=== PATIENT | female | born 2000 | race Caucasian/White ===

== ENCOUNTER 2021-07-30 04:49 | Emergency (ER) | payer OTHER ==
[2021-07-30 05:01] VITALS: BP 112/72; PULSE 93; RESP 20; TEMP 98.1
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
== END 2021-07-30 06:20 | disposition home or self-care (01) ==
LOC: EC 04:49
DX: S80.01XA Contusion of right knee, initial encounter (principal); F90.9 Attention-deficit hyperactivity disorder, unspecified type; F17.200 Nicotine dependence, unspecified, uncomplicated; F12.90 Cannabis use, unspecified, uncomplicated; V43.52XA Car driver injured in collision with other type car in traffic accident, initial encounter; Y92.410 Unspecified street and highway as the place of occurrence of the external cause
CPT/HCPCS: 99283

== ENCOUNTER 2023-11-08 09:13 | Emergency (ER) | payer OTHER ==
--- NOTE | 2023-11-08 10:30 | XR ---
EXAMINATION TYPE: XR hand complete 3 views LT DATE OF EXAM: 11/08/2023 Comparison: None Clinical History: 23-year-old female left hand injury Findings: There is an oblique fracture involving the mid to distal shaft of the second proximal phalanx. 2 mm o f radial displacement is noted with surrounding soft tissue swelling. No subluxation or dislocation. Impression: Oblique fracture second proximal phalangeal shaft with 2 mm of radial displacement and soft tissue sw elling.
[2023-11-08 10:31] VITALS: RESP 18
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
[2023-11-08 12:00] VITALS: BP 132/70; PULSE 108; TEMP 98.1
== END 2023-11-08 11:41 | disposition home or self-care (01) ==
LOC: EC 09:13
DX: S62.611A Displaced fracture of proximal phalanx of left index finger, initial encounter for closed fracture (principal); F17.290 Nicotine dependence, other tobacco product, uncomplicated; V29.99XA Rider (driver) (passenger) of other motorcycle injured in unspecified traffic accident, initial encounter; Y92.410 Unspecified street and highway as the place of occurrence of the external cause; Y93.55 Activity, bike riding
CPT/HCPCS: 99283